=== PATIENT | female | born 1975 | race Hispanic/Latino ===

== ENCOUNTER 2018-05-25 09:09 | Emergency (ER) | payer BC ==
[~2018-05-25] VITALS: Ht 160 cm; Wt 106.6 kg
[2018-05-25 10:20] LABS: BASOPHILS # (AUTO) 0.1 (0.0-0.1); BASOPHILS % 1.1 % (0.0-1.0); EOSINOPHILS # (AUTO) 0.2 (0.0-0.4); EOSINOPHILS % 3.5 % (0.0-6.0); HEMATOCRIT 42.3 % (34.2-44.1); HEMOGLOBIN 14.1 g/dL (12.0-16.0); LYMPHOCYTES # (AUTO) 1.7 (1.0-3.2); MEAN CORPUSCULAR HEMOGLOBIN 27.2 pg (28-32); MEAN CORPUSCULAR HGB CONC 33.3 g/dL (31-35); MEAN CORPUSCULAR VOLUME 81.7 fL (81-99); MONOCYTES # (AUTO) 0.4 (0.2-0.8); MONOCYTES % 5.5 % (4.4-11.3); NEUTROPHILS # (AUTO) 3.9 (2.1-6.9); NEUTROPHILS % 61.6 % (38.7-80.0); PLATELET COUNT 309 x10e3/uL (140-360); RED BLOOD COUNT 5.18 x10e6/uL (3.6-5.1); RED CELL DISTRIBUTION WIDTH 13.3 % (11.7-14.4)
[2018-05-25 10:38] LABS: ANION GAP 12.8 mmol/L (8-16); BLOOD UREA NITROGEN 12 mg/dL (7-26); BUN/CREATININE RATIO 15 (6-25); CALCIUM 9.4 mg/dL (8.4-10.2); CARBON DIOXIDE 22 mmol/L (22-29); CHLORIDE 102 mmol/L (98-107); CREATININE, SERUM 0.78 mg/dL (0.57-1.11); EST GLOMERULAR FILTRATION RATE > 60 ML/MIN (60-); GLUCOSE 179 mg/dL (74-118); POTASSIUM 3.8 mmol/L (3.5-5.1); SODIUM 133 mmol/L (136-145)
--- NOTE | 2018-05-25 10:55 | Diagnostic Imaging Report ---
Examination: CT head without contrast Clinical Indication: Lightheadedness. Blurry vision. Headache. Left arm tingling. Technique: Transaxial noncontrast images from the skull base through the vertex were obtained. Sagittal and coronal reformatted images were done. Dose modulation, iterative reconstruction, and/or weight based adjustment of the mA/kV was utilized to reduce the radiation dose to as low as reasonably achievable. Comparison: None. Findings: Scalp: No abnormalities. Bones: Intact. No fractures. No blastic or lytic lesions. Brain sulci: Appropriate for patient's age. Ventricles: Normal in size and configuration. No hydrocephalus. Extra-axial space: No abnormalities. Parenchyma: No abnormal densities. No masses, hemorrhage, or acute or chronic cortical based vascular insults. Suprasellar region: No abnormalities. Craniocervical junction: The foramen magnum is patent. No Chiari one malformation. Impression: No intracranial abnormality. Signed by: Dr. nEma Lu M.D. on 05/25/2018 10:52 AM
[2018-05-25] MEDS ORDERED: HYDROCHLOROTH12.5 M1 PO (11:03)
[2018-05-25] MEDS ORDERED: KETOROLAC TROMETHAMINE 30 MG/ML VIAL IV STA (11:23)
== END 2018-05-25 12:13 | disposition home or self-care (01) ==
LOC: ER 09:09
DX: I10 Essential (primary) hypertension (principal); R53.1 Weakness; R42 Dizziness and giddiness
CPT/HCPCS: 36415; 70450; 80048; 85025; 93005; 99284; J1885

== ENCOUNTER 2019-04-28 20:20 | Emergency (ER) | payer BC ==
[~2019-04-28] VITALS: Ht 160 cm; Wt 106.6 kg
[~2019-04-28 20:20] MED LIST: HYDROCHLOROTH12.5 M1 PO
--- OUTSIDE RECORDS SUMMARY | 2019-04-28 20:23 | XMS REPORT ---
Author [facility] Address Unknown Phone Unavailable Care Team Providers Care Reconciliation Specialist Name Role Phone Ander MARLOW Unavailable Unavailable Problems This patient has no known problems. Allergies, Adverse Reactions, Alerts This patient has no known allergies or adverse reactions. Medications This patient has no known medications. Results Test Description Test Time Test Comments Text Results Atomic Results Result Comments CT BRAIN WO 2018-05-25 10:51:00 [place] [id number] Patient Name: SANDRO GRUBBS MR #: [id number] : 1975 Age/Sex: 43/F Req #: [id number] Adm Physician: Ordered by: MIRTHA MARLOW MD Report #: [id number] Location: ER Room/Bed: Procedure: [id number] CT/CT BRAIN WO Exam Date: 05/25/18 Exam Time: 1030 REPORT STATUS: Signed Examination: CT head without contrast Clinical Indication: Lightheadedness. Blurry vision. Headache. Left arm tingling. Technique: Transaxial noncontrast images from the skull base through the vertex were obtained. Sagittal and coronal reformatted images were done. Dose modulation, iterative reconstruction, and/or weight based adjustment of the mA/kV was utilized to reduce the radiation dose to as low as reasonably achievable. Comparison: None. Findings: Scalp: No abnormalities. Bones: Intact. No fractures. No blastic or lytic lesions. Brain sulci: Appropriate for patient's age. Ventricles: Normal in size and configuration. No hydrocephalus. Extra-axial space: No abnormalities. Parenchyma: No abnormal densities. No masses, hemorrhage, or acute or chronic cortical based vascular insults. Suprasellar region: No abnormalities. Craniocervical junction: The foramen magnum is patent. No Chiari one malformation. Impression: No intracranial abnormality. Signed by: Dr. Enma Lu M.D. on 05/25/2018 10:52 AM Dictated By: ENMA FAULKNER MD [id number] Transcribed By: NEGRO on 05/25/18 1052 COPY TO: MIRTHA MARLOW MD
[2019-04-28] MEDS ORDERED: IBUPROFEN 600 MG TAB ONE (20:55)
[2019-04-28] MEDS ORDERED: ACETAMINOPHEN 325 MG TAB ONE (20:56)
[2019-04-28] MEDS ORDERED: ONDANSETRON HCL 4 MG ORAL DISINTEGRATING TAB ONE (20:56)
[2019-04-28] MEDS ORDERED: IBUPROFEN 600 MG TAB PO STA (20:59)
[2019-04-28] MEDS ORDERED: ONDANSETRON HCL 4 MG ORAL DISINTEGRATING TAB PO ONE (21:00)
[2019-04-28] MEDS ORDERED: ACETAMINOPHEN 325 MG TAB PO ONE (21:00)
[2019-04-28 21:26] LABS: STREPTOCOCCUS GRP A ANTIGEN NEGATIVE (NEGATIVE)
[2019-04-28 21:41] LABS: INFLUENZAE A&B ANTIGEN (RAPID) POSITIVE FLU A (NEGATIVE)
[2019-04-28 21:57] VITALS: BP 132/79
--- NOTE | 2019-04-28 22:26 | Diagnostic Imaging Report ---
EXAMINATION: CHEST 2 VIEWS INDICATION: Fever, bodyaches COMPARISON: None FINDINGS: TUBES and LINES: None. LUNGS: Normal lung volumes. Mild central bronchial wall thickening. No consolidations. PLEURA: No pleural effusion or pneumothorax. HEART AND MEDIASTINUM: The cardiomediastinal silhouette is unremarkable. BONES AND SOFT TISSUES: No acute osseous lesion. Soft tissues are unremarkable. UPPER ABDOMEN: No free air under the diaphragm. There are cholecystectomy clips. IMPRESSION: Subtle findings of bronchitis. No consolidations. Signed by: Brock Juarez DO on 04/28/2019 10:24 PM
== END 2019-04-28 22:02 | disposition home or self-care (01) ==
LOC: ER 20:20
DX: R50.9 Fever, unspecified (principal); R05 Cough; J11.1 Influenza due to unidentified influenza virus with other respiratory manifestations; I10 Essential (primary) hypertension; F41.9 Anxiety disorder, unspecified
CPT/HCPCS: 71046; 83518; 87070; 87400; 99283; Q0162

== ENCOUNTER 2022-09-10 11:08 | Inpatient (IN) | payer BC ==
[~2022-09-10] VITALS: Ht 152.4 cm; Wt 84.8 kg
[~2022-09-10 11:08] MED LIST changes: +FIORICET 50-301 EACH PO
[2022-09-10] MEDS ORDERED: MECLIZINE HCL 12.5 MG TAB PO ONE (11:30)
[2022-09-10 11:34] LABS: BASOPHILS # (AUTO) 0.1 (0.0-0.1); BASOPHILS % 1.4 % (0.0-1.0); EOSINOPHILS # (AUTO) 0.2 (0.0-0.4); EOSINOPHILS % 2.2 % (0.0-6.0); HEMATOCRIT 41.1 % (34.2-44.1); HEMOGLOBIN 14.2 g/dL (12.0-16.0); LYMPHOCYTES % 27.3 % (18.0-39.1); MEAN CORPUSCULAR HEMOGLOBIN 27.8 pg (28-32); MEAN CORPUSCULAR HGB CONC 34.5 g/dL (31-35); MEAN CORPUSCULAR VOLUME 80.6 fL (81-99); MONOCYTES # (AUTO) 0.4 (0.2-0.8); MONOCYTES % 5.3 % (4.4-11.3); NEUTROPHILS # (AUTO) 4.6 (2.1-6.9); PLATELET COUNT 293 x10e3/uL (140-360); RED CELL DISTRIBUTION WIDTH 12.8 % (11.7-14.4)
[2022-09-10 11:51] LABS: ALANINE AMINOTRANSFERASE 94 IU/L (0-55); ALBUMIN 3.6 g/dL (3.5-5.0); ALBUMIN/GLOBULIN RATIO 0.9 (0.8-2.0); ALKALINE PHOSPHATASE 93 IU/L (40-150); BLOOD UREA NITROGEN 10 mg/dL (7-26); BUN/CREATININE RATIO 13 (6-25); CALCIUM 10.1 mg/dL (8.4-10.2); CARBON DIOXIDE 22 mmol/L (22-29); CHLORIDE 103 mmol/L (98-107); CREATINE KINASE 40 IU/L (29-168); CREATININE, SERUM 0.77 mg/dL (0.57-1.11); GLUCOSE 236 mg/dL (74-118); SODIUM 135 mmol/L (136-145)
[2022-09-10 12:00] LABS: INR 0.95; PROTHROMBIN TIME 13.3 seconds (11.9-14.5)
[2022-09-10 12:01] LABS: PARTIAL THROMBOPLASTIN TIME 28.5 seconds (23.8-35.5)
[2022-09-10] MEDS ORDERED: SODIUM CHLORIDE 0.9% 1000ML 1,000 ML IV STA (12:07)
[2022-09-10] MEDS ORDERED: SODIUM CHLORIDE 0.9% 1000ML 1,000 ML ONE (12:09)
[2022-09-10] MEDS ORDERED: DIAZEPAM 5 MG TAB ONE (12:09)
[2022-09-10] MEDS ORDERED: DIAZEPAM INJ 5 MG/ML 2 ML IV ONE (12:15)
[2022-09-10 14:07] LABS: CLARITY,URINE CLOUDY (CLEAR); COLOR,URINE YELLOW (YELLOW); LEUKOCYTE ESTERASE ,URINE NEGATIVE (NEGATIVE); NITRITE,URINE NEGATIVE (NEGATIVE)
[2022-09-10 14:08] LABS: AMORPHOUS SEDIMENT,URINE MODERATE (FEW); BACTERIA,URINE MODERATE /HPF; EPITHELIAL CELLS,URINE MANY /LPF; KETONES,URINE NEGATIVE (NEGATIVE); PROTEIN,URINE DIPSTICK 1+ (NEGATIVE); TRANSITIONAL EPI CELLS,URINE FEW; URINE UROBILINOGEN 0.2 mg/dL (0.2 - 1); WBC,URINE (MAN) 0-5 /HPF (0-5)
[2022-09-10] MEDS: Morphine 2mg Syringe 2 MG/ML SYR IV PRN ×2 (14:32→21:42)
[2022-09-10] MEDS: ONDANSETRON HCL INJ 2MG/ML 2ML 2 MG/ML VIAL IV PRN ×2 (14:32→21:50)
[2022-09-10 14:51] VITALS: PULSE 92; RESP 20; O2SAT 98
[2022-09-10 15:06] LABS: CREATINE KINASE 40 IU/L (29-168)
[2022-09-10] MEDS: SODIUM CHLORIDE 0.9% 1000ML 1,000 ML IV SCH ×2 (16:15→21:52)
[2022-09-10 17:09] VITALS: BP 157/89; PULSE 95; RESP 17; TEMP 98.1; O2SAT 99
[2022-09-10 17:16] VITALS: BP 157/89; PULSE 95; RESP 17; TEMP 98.1; O2SAT 99
[2022-09-10] MEDS ORDERED: METFORMIN HCL500 MG PO (17:55)
[2022-09-10] MEDS ORDERED: BUSPIRONE HCL10 MG PO (17:55)
[2022-09-10] MEDS ORDERED: [UNRECOGNIZED DRUG - OTHER] (17:55)
[2022-09-10 18:54] VITALS: PULSE 85; RESP 18; O2SAT 98
[2022-09-10 20:00] VITALS: BP 141/85; PULSE 83; RESP 20; TEMP 98.8; O2SAT 94
[2022-09-10] MEDS ORDERED: DEXTROSE 50% SYRINGE 50 ML IV PRN (20:30)
[2022-09-10] MEDS ORDERED: SCOPOLAMINE 1 MG PATCH TOP SCH (21:00)
[2022-09-10] MEDS: INSULIN REGULAR, HUMAN 100 UNIT/1 ML SQ SCH (21:50)
[2022-09-11] VITALS (8 sets, daily range): BP systolic 123–140; BP diastolic 75–90; PULSE 65–83; RESP 16–20; TEMP 97.9–98.7; O2SAT 98–100
[2022-09-11 05:03] LABS: BASOPHILS # (AUTO) 0.1 (0.0-0.1); BASOPHILS % 1.3 % (0.0-1.0); EOSINOPHILS # (AUTO) 0.3 (0.0-0.4); EOSINOPHILS % 3.5 % (0.0-6.0); HEMATOCRIT 41.1 % (34.2-44.1); HEMOGLOBIN 13.3 g/dL (12.0-16.0); LYMPHOCYTES # (AUTO) 2.8 (1.0-3.2); LYMPHOCYTES % 35.5 % (18.0-39.1); MEAN CORPUSCULAR HEMOGLOBIN 27.4 pg (28-32); MEAN CORPUSCULAR HGB CONC 32.4 g/dL (31-35); MEAN CORPUSCULAR VOLUME 84.7 fL (81-99); MONOCYTES # (AUTO) 0.6 (0.2-0.8); MONOCYTES % 7.9 % (4.4-11.3); NEUTROPHILS # (AUTO) 3.9 (2.1-6.9); NEUTROPHILS % 50.5 % (38.7-80.0); PLATELET COUNT 255 x10e3/uL (140-360); RED BLOOD COUNT 4.85 x10e6/uL (3.6-5.1); RED CELL DISTRIBUTION WIDTH 12.8 % (11.7-14.4)
[2022-09-11] MEDS: SODIUM CHLORIDE 0.9% 1000ML 1,000 ML IV SCH ×3 (05:22→21:44)
[2022-09-11] MEDS: ONDANSETRON HCL INJ 2MG/ML 2ML 2 MG/ML VIAL IV PRN ×3 (05:26→23:37)
[2022-09-11] MEDS: Morphine 2mg Syringe 2 MG/ML SYR IV PRN ×3 (05:27→23:37)
[2022-09-11 05:29] LABS: ALBUMIN 3.3 g/dL (3.5-5.0); ALBUMIN/GLOBULIN RATIO 0.9 (0.8-2.0); ANION GAP 10.7 mmol/L (8-16); CALCIUM 9.8 mg/dL (8.4-10.2); CREATININE, SERUM 0.74 mg/dL (0.57-1.11); POTASSIUM 4.7 mmol/L (3.5-5.1)
[2022-09-11 05:42] LABS: CREATINE KINASE 35 IU/L (29-168)
[2022-09-11] MEDS: INSULIN REGULAR, HUMAN 100 UNIT/1 ML SQ SCH ×4 (09:23→21:50)
[2022-09-12] VITALS (9 sets, daily range): BP systolic 118–165; BP diastolic 84–98; PULSE 76–84; RESP 17–18; TEMP 97.9–98.9; O2SAT 98–100
[2022-09-12] MEDS: SODIUM CHLORIDE 0.9% 1000ML 1,000 ML IV SCH ×3 (05:06→21:33)
[2022-09-12 06:55] LABS: BASOPHILS # (AUTO) 0.1 (0.0-0.1); EOSINOPHILS # (AUTO) 0.2 (0.0-0.4); EOSINOPHILS % 3.5 % (0.0-6.0); HEMATOCRIT 38.7 % (34.2-44.1); HEMOGLOBIN 12.6 g/dL (12.0-16.0); LYMPHOCYTES # (AUTO) 2.2 (1.0-3.2); LYMPHOCYTES % 32.4 % (18.0-39.1); MEAN CORPUSCULAR HEMOGLOBIN 27.6 pg (28-32); MEAN CORPUSCULAR HGB CONC 32.6 g/dL (31-35); MEAN CORPUSCULAR VOLUME 84.9 fL (81-99); MONOCYTES # (AUTO) 0.5 (0.2-0.8); MONOCYTES % 7.2 % (4.4-11.3); NEUTROPHILS # (AUTO) 3.8 (2.1-6.9); NEUTROPHILS % 54.7 % (38.7-80.0); PLATELET COUNT 253 x10e3/uL (140-360); RED BLOOD COUNT 4.56 x10e6/uL (3.6-5.1); RED CELL DISTRIBUTION WIDTH 12.7 % (11.7-14.4)
[2022-09-12 07:43] LABS: ANION GAP 11.2 mmol/L (8-16); CALCIUM 9.5 mg/dL (8.4-10.2); POTASSIUM 4.2 mmol/L (3.5-5.1)
[2022-09-12 08:02] LABS: ALBUMIN 3.1 g/dL (3.5-5.0); CREATININE, SERUM 0.73 mg/dL (0.57-1.11)
[2022-09-12] MEDS: INSULIN REGULAR, HUMAN 100 UNIT/1 ML SQ SCH ×4 (08:27→21:31)
[2022-09-12] MEDS ORDERED: LISINOPRIL-HCT1 EACH PO (08:32)
[2022-09-12] MEDS: LISINOPRIL 20 MG TAB PO SCH (13:01)
[2022-09-12] MEDS: HYDROCHLOROTHIAZIDE 25 MG TAB PO SCH (13:02)
[2022-09-13] VITALS (7 sets, daily range): BP systolic 135–150; BP diastolic 73–99; PULSE 69–85; RESP 15–18; TEMP 97.9–98.7; O2SAT 99–100
[2022-09-13] MEDS: Morphine 2mg Syringe 2 MG/ML SYR IV PRN ×2 (04:28→16:37)
[2022-09-13] MEDS: SODIUM CHLORIDE 0.9% 1000ML 1,000 ML IV SCH ×2 (04:28→12:24)
[2022-09-13] MEDS: ONDANSETRON HCL INJ 2MG/ML 2ML 2 MG/ML VIAL IV PRN ×2 (04:34→16:36)
[2022-09-13 06:05] LABS: CALCIUM 9.8 mg/dL (8.4-10.2); CREATININE, SERUM 0.69 mg/dL (0.57-1.11)
[2022-09-13 06:30] LABS: THYROID STIMULATING HORMONE 2.696 uIU/mL (0.350-4.940)
[2022-09-13] MEDS: HYDROCHLOROTHIAZIDE 25 MG TAB PO SCH (08:00)
[2022-09-13] MEDS: LISINOPRIL 20 MG TAB PO SCH (08:01)
[2022-09-13] MEDS: INSULIN REGULAR, HUMAN 100 UNIT/1 ML SQ SCH ×4 (08:04→21:24)
[2022-09-13] MEDS ORDERED: SCOPOLAMINE 1 MG PATCH TOP SCH (21:00)
[2022-09-13] MEDS ORDERED: BISACODYL 10 MG SUPP PR ONE (21:00)
[2022-09-13] MEDS: INSULIN GLARGINE 100 UNITS/ML VIAL SQ SCH (21:25)
[2022-09-14] VITALS: BP 138/87; PULSE 80; RESP 18; TEMP 98.4; O2SAT 100
[2022-09-14 04:00] VITALS: BP 132/78; PULSE 70; RESP 18; TEMP 98; O2SAT 98
[2022-09-14] MEDS: Morphine 2mg Syringe 2 MG/ML SYR IV PRN ×2 (04:13→22:19)
[2022-09-14] MEDS: ONDANSETRON HCL INJ 2MG/ML 2ML 2 MG/ML VIAL IV PRN ×2 (04:13→22:12)
[2022-09-14 05:14] LABS: BASOPHILS # (AUTO) 0.1 (0.0-0.1); EOSINOPHILS # (AUTO) 0.3 (0.0-0.4); HEMATOCRIT 40.6 % (34.2-44.1); HEMOGLOBIN 13.4 g/dL (12.0-16.0); LYMPHOCYTES # (AUTO) 2.6 (1.0-3.2); LYMPHOCYTES % 28.9 % (18.0-39.1); MEAN CORPUSCULAR HEMOGLOBIN 27.9 pg (28-32); MEAN CORPUSCULAR VOLUME 84.6 fL (81-99); MONOCYTES # (AUTO) 0.6 (0.2-0.8); NEUTROPHILS # (AUTO) 5.2 (2.1-6.9); NEUTROPHILS % 58.5 % (38.7-80.0); PLATELET COUNT 276 x10e3/uL (140-360); RED CELL DISTRIBUTION WIDTH 12.6 % (11.7-14.4)
[2022-09-14 05:34] LABS: ANION GAP 13.8 mmol/L (8-16); CALCIUM 9.9 mg/dL (8.4-10.2); CREATININE, SERUM 0.72 mg/dL (0.57-1.11); MAGNESIUM 1.6 MG/DL (1.3-2.1); POTASSIUM 3.8 mmol/L (3.5-5.1)
[2022-09-14] MEDS: INSULIN REGULAR, HUMAN 100 UNIT/1 ML SQ SCH ×4 (07:30→21:12)
[2022-09-14] MEDS: SENNA-S TABLET PO SCH ×2 (07:55→17:17)
[2022-09-14] MEDS: DOCUSATE SODIUM 100 MG CAP PO SCH ×2 (07:55→17:17)
[2022-09-14] MEDS: HYDROCHLOROTHIAZIDE 25 MG TAB PO SCH (07:56)
[2022-09-14] MEDS: LISINOPRIL 20 MG TAB PO SCH (07:56)
[2022-09-14 08:00] VITALS: BP 134/81; PULSE 73; RESP 18; TEMP 98.6; O2SAT 100
[2022-09-14] MEDS ORDERED: BISACODYL 10 MG SUPP PR PRN (09:15)
[2022-09-14] MEDS: ACETAMINOPHEN 325 MG TAB PO PRN (15:09)
[2022-09-14 16:00] VITALS: BP 118/82; PULSE 88; RESP 18; TEMP 98.2; O2SAT 98
[2022-09-14 20:00] VITALS: BP 130/92; PULSE 80; RESP 20; TEMP 98.1; O2SAT 99
[2022-09-14] MEDS: INSULIN GLARGINE 100 UNITS/ML VIAL SQ SCH (21:13)
[2022-09-15] VITALS: BP 109/60; PULSE 81; RESP 20; TEMP 98; O2SAT 95
[2022-09-15 04:00] VITALS: BP 103/63; PULSE 78; RESP 20; TEMP 98; O2SAT 95
[2022-09-15] MEDS: ACETAMINOPHEN 325 MG TAB PO PRN (06:15)
[2022-09-15 08:00] VITALS: BP 125/67; PULSE 68; RESP 18; TEMP 98; O2SAT 100
[2022-09-15] MEDS ORDERED: TRANSDERM-SCOP1 EACH TOP (08:32)
[2022-09-15] MEDS ORDERED: TOPIRAMATE25 MG PO (08:32)
[2022-09-15] MEDS ORDERED: PROCHLORPERAZIN10 MG PO (08:32)
[2022-09-15] MEDS: INSULIN REGULAR, HUMAN 100 UNIT/1 ML SQ SCH (08:53)
[2022-09-15 08:54] VITALS: BP 125/67; PULSE 68; RESP 18; TEMP 98; O2SAT 100
[2022-09-15] MEDS: SENNA-S TABLET PO SCH (09:00)
[2022-09-15] MEDS: DOCUSATE SODIUM 100 MG CAP PO SCH (09:00)
[2022-09-15] MEDS: LISINOPRIL 20 MG TAB PO SCH (09:17)
[2022-09-15] MEDS: HYDROCHLOROTHIAZIDE 25 MG TAB PO SCH (09:17)
== END 2022-09-15 11:09 | disposition home or self-care (01) | DRG 149 ==
LOC: ER 11:24 → ERHOLD 13:40 → MED/SURG 17:10 → OBSVTOIN 09-11 09:03
PROVIDERS: ADMIT Internal Medicine; ATTEND Internal Medicine
DX: R42 Dizziness and giddiness (principal); H90.42 Sensorineural hearing loss, unilateral, left ear, with unrestricted hearing on the contralateral side; H93.12 Tinnitus, left ear; E23.7 Disorder of pituitary gland, unspecified; G43.909 Migraine, unspecified, not intractable, without status migrainosus; R74.01 Elevation of levels of liver transaminase levels; E11.65 Type 2 diabetes mellitus with hyperglycemia; I10 Essential (primary) hypertension; F41.9 Anxiety disorder, unspecified; E66.09 Other obesity due to excess calories; E66.9 Obesity, unspecified; Z68.32 Body mass index [BMI] 32.0-32.9, adult; Z20.822 Contact with and (suspected) exposure to COVID-19; Z79.84 Long term (current) use of oral hypoglycemic drugs; Z79.899 Other long term (current) drug therapy
CPT/HCPCS: 36415; 70450; 70480; 70551; 71045; 72125; 80048; 80053; 81001; 82550; 82607; 82948; 83036; 83735; 83880; 84443; 84484; 84702; 85025; 85610; 85730; 93005; 94799; 99284; G0378; J1815; J2270; J2405; J3360; J7030